=== PATIENT | female | born 2000 | race Two or more races ===

== ENCOUNTER 2024-07-24 17:08 | Emergency (ER) | payer MEDICAID, SELFPAY ==
[2024-07-24 17:23] VITALS: BP 130/89; PULSE 85; RESP 16; TEMP 37.1; O2SAT 99; BMI 34.2
--- NOTE | 2024-07-24 17:56 | PC.CC ---
Pt Shanon Castelan is a 23 yr old female to ED for auditory hallucinations (command type), pt reporting that she has not been sleeping. At this time pt is pending medical clearance. Pt placed on 1798.
--- NOTE | 2024-07-24 18:06 | PC.NURSE ---
PATIENT BROUGHT TO ROOM WITH . PER PATIENT SHE HAS BEEN HEARING VOICES FOR THE PAST 3 DAYS, STATES THEY CONTINUALLY TALK IN HER HEAD AND TELL HER THAT A FAMILY MEMBER IS GOING TO GET HURT. PATIENT STATES THE VOICES ARE TELLING HER TO STOMP ON SON'S HEAD . STATES SHE HAS BEEN UP AT NIGHT HEARING SCREAMING OUTSIDE. STATES SHE HAS NOT BEEN GETTING SLEEP DUE TO ONE YEAR OLD SON UP AT NIGHT CRYING DUE TO TEETHING AND THAT SHE IS NOT ABLE TO REST DUE TO THE VOICES. PATIENT IS CALM AT TIME OF ASSESSMENT AND ANSWERS ALL QUESTIONS APPROPRIATELY. PATIENT STATE THAT SHE IS CURRENTLY HEARING THE VOICES AND THEY DO NOT TURN OFF. PATIENT ABLE TO WALK TO RESTROOM AND PROVIDE URINE. PATIENT IS CALM AND COOPERATIVE AT TIME OF ASSESSMENT. PLAN OF CARE DISCUSSED WITH PATIENT AND . PATIENT IN ROOM WITH SITTER AT BEDSIDE, ALL EQUIPMENT REMOVED FOR SAFETY.
--- NOTE | 2024-07-24 18:08 | PD.EDPSYCH ---
ED Psych RME/HPI General Chief Complaint: Psychiatric Symptoms Stated Complaint: hearing voices, not sleeping, voices threatening Time Seen by Provider: 07/24/24 17:49 Arrival date/time: 07/24/24 17:08 RME / HPI RME / HPI Narrative: DR. JUNG MAIN ED EVALUATION: 23 year old female presents to the Emergency Department with complaints of auditory hallucinations and anxiety. She states she hears voices that threaten her and her family including her son. She mentions that she has not been sleeping and is anxious. She also states there is a tracker in her body. PMH: Hypertension FH: Hypertension, T2DM Surgical Hx: x2 Social Hx: Denies tobacco, alcohol, or drug use. Related Data Home Medications ?Medication ?Instructions ?Recorded ?Confirmed aspirin 81 mg chewable tablet 81 mg PO QDAY 06/27/23 06/27/23 vit no.95-ferrous 1 tab PO QDAY 06/27/23 06/27/23 fumarate 28 mg-folic acid 800 mcg tablet () Allergies Allergy/AdvReac Type Severity Reaction Status Date / Time No Known Allergies Allergy Verified 07/24/24 17:09 Review of Systems Review of Systems Systems Reviewed: All systems reviewed, normal except as documented Narrative Review of Systems: GEN: No fever, no chills, no weight loss EYES: No discharge, no visual changes, no pain HEENT: No ear pain, no congestion, no sore throat PULM: No shortness of breath, no cough, no congestion CV: No chest pain, no dyspnea on exertion, no palpitations GI: No nausea, no vomiting, no diarrhea, no pain, no constipation : No frequency, no urgency and no dysuria MUSC/SKEL: No joint pain, no back pain SKIN: No rash PSYCH: + auditory hallucinations (see HPI), + anxiety. HEME/LYMPH: No easy bleeding or bruising tendencies NEURO: No weakness, no headache Past Medical History Family History FAMILY HISTORY: Positive Family Respiratory Disorders (MOTHER: ASTHMA) and Family Cardiac Disorders (MOTHER, MGA : HTN); Negative Family Psychiatric Problems, Family Gastrointestinal Problems, Family Cancer, Family Surgery or Family Anesthesia Reaction Surgical History SURGICAL: Positive Section (X1) Social History SMOKING STATUS: Never smoker SUBSTANCE USE: does not use ALCOHOL: Never Past Medical History Comments PMH COMMENT: PMH: Hypertension FH: Hypertension, T2DM Surgical Hx: x2 Social Hx: Denies tobacco, alcohol, or drug use. ED Exam Narrative Physical exam: GENERAL APPEARANCE: alert and oriented x 4, well-developed, well-nourished, no acute distress VITALS: All vitals were reviewed and the pulse ox is 99% on room air, which is normal according to my interpretation. HEENT: Normocephalic, atraumatic; pupils equal, round, reactive to light; EOMI; mucous membranes pink, moist; oropharynx clear NECK: Supple LUNGS: CTABL; no wheezes, no rales, no rhonchi HEART: Regular rate, regular rhythm; normal S1, S2; no murmurs ABDOMEN: non distended; normal BS; soft, no tenderness, no guarding, no rebound; no masses, no organomegaly, no hernia BACK: no CVA tenderness EXTREMITIES: atraumatic; no edema NEUROLOGIC: awake; alert and oriented x4; cranial nerves II-XII grossly intact; no focal sensory or motor deficits PSYCHIATRIC: anxious SKIN: warm, dry, normal color; no rashes Course Course Course Narrative: 1800: Patient was signed out to Dr. Harris. Past medical, surgical, social and family history reviewed. Vitals and home medications reviewed. Results and treatment plan discussed. They will assume the care of the patient at this time and will follow the patient, pending psychiatric placement. Quality Measures none Orders Category Date Time Status 1799 Psychiatric Hold NOW Care 07/24/24 18:00 Ordered Alcohol, Urine Stat Lab 07/24/24 17:49 Received CBC Stat Lab 07/24/24 18:10 Received CMP [Comprehensive Metabolic Panel] Stat Lab 07/24/24 18:10 Received Drug Screen,Urine Stat Lab 07/24/24 17:49 Received HCG Qualitative,Urine Stat Lab 07/24/24 17:49 Received Vital Signs Vital signs: Vital Signs Temperature 98.7 F 07/24/24 17:23 Pulse Rate 85 07/24/24 17:23 Respiratory Rate 16 07/24/24 17:23 Blood Pressure 130/89 H 07/24/24 17:23 Pulse Oximetry (%) 99 07/24/24 17:23 Oxygen Delivery Method Room Air 07/24/24 17:23 Psych MDM Narrative MDM Narrative:: INahomy am scribing for and in the presence of Dr. Jung. Patient data External records reviewed:: [facility] previous records (Reviewed last OB / STRUCTURAL BIOLOGIST note by Dr. Arrieta, dated 06/30/23.) Clinical information provided by:: patient Social determinants that could affect healthcare access:: none Patient has the following chronic illnesses:: PMH: Hypertension FH: Hypertension, T2DM Surgical Hx: x2 How is presenting disease/condition affected by chronic disease/condition?: exacerbated by Evaluation data The following diagnostics were reviewed and interpreted by me:: lab results Lab and/or radiology exams considered but not ordered:: none Interpretation Summary: Pending labs. Medications / Prescriptions Medications or Prescriptions considered but not ordered:: none Medication administrations:: see above if any Consultations Consultation(s) initiated? (list below): No Diagnosis Psych Differential Diagnosis: acute psychosis, drug-induced psychotic disorder, acute anxiety and other (schizophrenia/hallucinations) Most likely diagnosis given after review of the tests above:: As noted below. Admission Indicated Admission indicated?: not indicated Admission Request Was there a request for admission?: No Disposition Plan Disposition Plan: other (specify) (Patient signout to the shift superintendent provider. ) Discharge Plan Prescriptions/Referrals Prescriptions/Med Rec: No Action PNV cmb#95-ferrous fumarate-FA [] 28 mg iron- 800 mcg Tablet 1 tab PO QDAY aspirin 81 mg Tablet,Chewable 81 mg PO QDAY Problem List Clinical Impression: Auditory hallucinations, At risk for danger to others Patient/Caregiver Discharge Instructions Print Language: Tamazight
[2024-07-24 18:17] LABS: Basophils # (Auto) 0.1 Thou/mm3 (0.0-0.2); Basophils % (Auto) 1 % (0-2.5); Eosinophils # (Auto) 0.1 Thou/mm3 (0.0-0.5); Eosinophils % (Auto) 1 % (0-10); Hematocrit 40.5 % (36.0-46.0); Hemoglobin 13.8 g/dL (12.0-16.0); Immature Granulocytes % (Auto) 0 % (0-0); Immature Granulocytes Auto 0.02 Thou/mm3 (0.00-0.00); Lymphocytes # (Auto) 1.9 Thou/mm3 (1.0-4.8); Lymphocytes % (Auto) 21 % (10-50); Mean Corpuscular HGB Conc 34.1 g/dl (31.0-37.0); Mean Corpuscular Hemoglobin 29.7 pg (25.0-35.0); Mean Corpuscular Volume 87 fL (80-100); Monocytes # (Auto) 0.6 Thou/mm3 (0.0-0.8); Monocytes % (Auto) 7 % (0-12); Neutrophils # (Auto) 6.6 Thou/mm3 (1.8-7.7); Neutrophils % (Auto) 71 % (37-80); Nucleated Red Blood Cell % 0 /100 WBC (0); Platelet Count 225 Thou/mm3 (140-440); RDW Standard Deviation 40.1 fL (36.4-46.3); Red Blood Count 4.65 Miln/mm3 (4.00-5.20); White Blood Count 9.2 Thou/mm3 (3.6-11.0)
[2024-07-24 18:31] LABS: HCG Qualitative,Urine Negative
--- NOTE | 2024-07-24 18:31 | EDNOTE_ITS ---
Emergency Room Addendum <Nahomy Mariscal - Last Filed: 07/24/24 18:31> Addendum Narrative: 1800: Care assumed from Dr. Jung, the previous shift emergency physician. Past medical, surgical, social and family history reviewed. Vitals and home medications reviewed. I will assume the care of the patient at this time, pending psychiatric placement. The patient was placed in ED observation care at 07/24/2024 at 1800 hours. The patient was placed in ED observation care because of undifferentiated decompensated behavioral health evaluation, no behavioral health bed available. The plan of care will include serial examinations. Please refer to the emergency department record for history and examination.? While in ED observation the patient will have access to water, food, and personal hygiene. If the patient takes home medication(s), they will be contin ued in ED observation. Physical exam by me shows patient under no acute distress at this time. <Rocky Harris MD - Last Filed: 07/25/24 03:56> Addendum Narrative: 1800 (07/24/24): Care assumed from Dr. Jung, see her notes for complete H&P. During my watch, the patient remained stable. At 6 AM on 07/25/2024, the care of the patient was transferred to Dr. JUNG. Rocky Harris MD
[2024-07-24 18:33] LABS: Alcohol, Urine Negative (Negative); Amphetamine/Methamp Scrn,U Negative (Negative); Barbiturate Screen,Urine Negative (Negative); Benzodiazepines Screen,Urine Negative (Negative); Benzoylecgonine Screen, Ur Negative (Negative); Fentanyl Screen,Urine Negative (Negative); Opiate Screen,Urine Negative (Negative); THC Screen,Urine Negative (Negative)
[2024-07-24 18:34] LABS: Alanine Aminotransferase 15 U/L (10-49); Albumin, Serum 4.8 gm/dL (3.5-5.0); Albumin/Globulin Ratio 2.1 (1.2-2.2); Alkaline Phosphatase 77 U/L (46-116); Anion Gap 7 (7-16); Aspartate Amino Transferase 13 U/L (0-34); BUN/Creatinine Ratio 9 Ratio (12-20); Bilirubin,Total 0.4 mg/dL (0.3-1.2); Blood Urea Nitrogen 6 mg/dL (9-23); Calcium 9.4 mg/dL (8.3-10.6); Calcium (Corrected) 9.4 mg/dL (8.5-10.1); Carbon Dioxide 27.6 mMol/L (20.0-31.0); Chloride 105 mMol/L (98-107); Creatinine (Component) 0.7 mg/dL (0.6-1.3); Globulin 2.3 gm/dL (2.3-3.5); Glucose 86 mg/dL (74-106); Osmolality,Calculated 276 (275-295); Potassium 3.4 mMol/L (3.4-5.1); Sodium 140 mMol/L (136-145); Total Protein 7.1 gm/dL (5.7-8.2); eGFR > 60 See Note
[2024-07-24] MEDS: ALPRazoLAM 0.25 MG TABLET 1 MG PO (19:57)
[2024-07-24 20:08] LABS: Acetaminophen < 2.0 mcg/mL (10.0-20.0); Magnesium 2.3 mg/dL (1.6-2.6); Salicylate < 3.0 mg/dL
[2024-07-25 05:30] VITALS: BP 123/83; PULSE 90; RESP 16; TEMP 36.9; O2SAT 97
--- NOTE | 2024-07-25 07:49 | PC.NURSE ---
pt.'s Mother called here Xiomara [phone], pt. states it's ok to give Xiomara information.
[2024-07-25 07:58] VITALS: BP 116/79; PULSE 93; RESP 18; TEMP 36.7; O2SAT 97
--- NOTE | 2024-07-25 07:58 | PC.NURSE ---
Pt. here from home to bed 7, pt. states she is hearing voices say that they are going to hurt her and her family. Pt. denies any suicidal or homicidal ideation. Pt.'s is bedside and appears supportive, pt. states she has a supportive family. Pt. denies any pain, SOB, no s/s of distress.
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
--- NOTE | 2024-07-25 09:32 | PC.CC ---
Patient was accepted to [facility]. ASW to arrange transportation. Patient was provided with accepting information facility. Dr. Jung, supply chain systems manager Lanise, and RAHEEL Montano made aware of discharge plan.
--- NOTE | 2024-07-25 09:55 | PC.CC ---
ED Die Cutter Operator filed SCAR report via fax and telephone call. Call reported to CWS TITUS Hunter.
[2024-07-25 10:51] VITALS: BP 110/62; PULSE 93; RESP 17; TEMP 36.9; O2SAT 96
--- NOTE | 2024-07-25 11:05 | PC.CC ---
Pt and partner asked to speak with ED Skip Miner. Pt reported concerns with being transfer to psych facility. Religion Professor explained 5150 hold and process to Pt and partner and answered any questions and concerns. Pt and partner stated they understood 5150 process and did not have any further questions or concerns.
--- NOTE | 2024-07-27 16:42 | PC.CC ---
[id number]-Call from Yue Cruz with CWS for follow up information on SCARS report completed by ED Aircraft Structural Repair Mechanic Nelly Castillo. Updated that pt was detained on 5150 hold and placed at [facility]. Yue inquired for contact information for pts life partner and FOB. Contact information available provided at this time. ASW will remain available as needed for pt care and staff support.
== END 2024-07-25 11:00 ==
LOC: SERX 18:53
PROVIDERS: Nurse Practitioner Primary Care; Emergency Provider Emergency Medicine
DX: R44.0 Auditory hallucinations (principal); F41.9 Anxiety disorder, unspecified
CPT/HCPCS: 36415; 80053; 80307; 80320; 80329; 81025; 83735; 85025; 90839; 96127; 99285; A9270; G0480

== ENCOUNTER 2025-06-25 13:39 | Outpatient (AMB) | payer MEDICAID, SELFPAY ==
--- NOTE | 2025-06-25 13:53 | OBCLNT_ITS ---
Vital Signs 06/25/25 13:54 Height 1.73 m Height Method Stated Weight 127.97 kg Weight Measurement Method Standing Scale BMI 42.7 BP 127/83 Blood Pressure Source Automatic Cuff Blood Pressure Location Right Upper Arm Position Sitting Respiration 18 Pulse 99 Pulse Source Monitor Temp 97.3 F Temp Source Temporal Artery Scan Pulse Oximetry (%) 98 Oxygen Delivery Method Room Air Allergies/Home Meds Allergies & Medications Allergies No Known Allergies Allergy (Verified 06/25/25 13:58) Medication Reconciliation aspirin 81 mg chewable tablet 81 mg PO QDAY 06/27/23 [History Confirmed 06/25] vit no.95-ferrous fumarate 28 mg-folic acid 800 mcg tablet () 1 tab PO QDAY 06/27/23 [History Confirmed 06/25/25] Intake Visit Data Collection New Patient or Established: Established Patient (seen at [facility] within 3 years) Reason for Visit:: OBI TRANSFER Seen by Clinical Staff ONLY (RN/MA): No Non Garment Sewing Machine Operator Required: No Do You Feel Safe at Home: Yes Authorities Contacted: N/A PCP or OBGYN visit in last 3 months: No Hx Now: Yes Are you currently on any form of Control: No Last menstrual period: 12/15/24 Pain Present Currently: No Pain Scale Used: Jaimes-Walden/Numerical Smoking Status Smoking Status: Never smoker Immunizations Flu Vaccine in the Last 12 Months: No Flu Vaccine Exclusion Criteria: Refused by Patient Questionnaires Covid-19 Vaccine Questionnaire Has patient been vacinated for Covid-19 Have you been vacinated for Covid-19: No PHQ-9 PHQ-2 Over the last 2 weeks, how often have you been bothered by any of the following problems? 1. Little interest or pleasure in doing things: not at all 2. Feeling down, depressed, or hopeless: not at all Total score: 0 PHQ-9 3. Trouble falling or staying asleep, or sleeping too much: Not at all 4. Feeling tired or having little energy: Not at all 5. Poor appetite or overeating: Not at all 6. Feeling bad about yourself - or that you are a failure or have let yourself or your family down: Not at all 7. Trouble concentrating on things, such as reading the newspaper or watching television: Not at all 8. Moving or speaking so slowly that other people could have noticed? - Or the opposite - being so fidgety or restless that you have been moving around a lot more than usual: not at all 9. Thoughts that you would be better off or of hurting yourself in some way: Not at all Total score: 0 If you checked off any problems, how difficult have these problems made it for you to do your work, take care of things at home, or get along with other people?: not difficult at all Source: Developed by Drs. Maximino Sandoval, Fela Licona, Nikko Dodd and colleagues, with an educational lluvia from [employer]. 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 Medical History Past Medical History: No Hx Neurological Disorders, No Hx Cardiac Disorders, No Hx Cancer, No Hx Blood Disorders, No Hx Gastrointestinal Disorders, No Hx Renal Disease, No Hx Diabetes Mellitus Type 1 and No Hx Diabetes Mellitus Type 2 OB Initial Visit OB Flowsheet OB Flowsheet Initial Weight: Not Recorded Date -?-?-?-?-?-?-?-?-?-?-?-?- EGA Weight BP Alb Glu CTX Pres Fundal ht FHR Mov Dilation Station Effacement Hx Notes Visit Note 06/25/25 -?-?-?-?-?-?-?-?-?-?-?-?- 33w 1d 127.97 kg 127/83 absent unknown 34 140 active Menstrual History Menstrual reliability: definite Flow: normal Menstrual regularity: regular Monthly: Yes Age at menarche: 11 On control pills at conception: No OB History : 3 Para: 2 Hx # Pregnancies: 2 # of Living Children: 2 Delivery History 1st : Child's name: CARMEN RUBY date: 03/15/19 sex: female Gestational age at delivery (weeks): 26 Delivery type: weight (lbs): 907.185 g History of depression before or after : Yes 2nd : Child's name: BLANCA RUBY date: 06/27/23 sex: male Gestational age at delivery (weeks): 36 Delivery type: weight (lbs): 4000 g History of depression before or after : No Infection History & Risk Evaluation History of STDs: none Patient or partner has history of Genital Herpes: No Genetic Screening & History Genetic Screening/Teratology Counseling - Includes patient, baby's father, or anyone in either family with: 1. Patient's age 35 years or older as of estimated date of delivery: No 2. Thalassemia (Georgian, Palestinian, Mediterranean, or Background); MCV less than 80: No 3. Neural Tube Defect (Meningomyelocele, Spina Bifida, or Anencephaly): No 4. Congenital Heart Defect: No 5. Down Syndrome: No 6. Sandeep-Sachs (Ashkenazi Pentecostalism, Cajun, Chilean Yemeni): No 7. Pat Disease (Ashkenazi Pentecostalism): No 8. Familial Dysautonomia (Ashkenazi Pentecostalism): No 9. Sickle Cell Disease or Trait (): No 10. Hemophilia or other blood disorders: No 11. Muscular Dystrophy: No 12. Cystic Fibrosis: No 13. Muriel's Chorea: No 14. Mental Retardation/Autism: No 15. Other inherited genetic or chromosomal disorder: No 16. Maternal Metabolic Disorder (EG,TYPE 1 Diabetes, PKU): No 17. Patient or baby's father had a child with defects not listed above: No 18. Recurrent loss or a stillbirth: No 19. Medications (including supplements, vitamins, herbs or otc drugs)/illicit/recreational drugs/alcohol since last menstrual period: No 20. Any other: No Infection History 1. Live with someone with TB or exposed to TB: No Other (see comments) Source: [employer] Review of Systems Review of Systems Systems Reviewed: All systems reviewed, normal except as documented Exam Narrative Physical exam: Alert and oriented x 3 no shortness of breath Pain no chest pain no palpitations Chest no extra effort noted CVS regular rate and rhythm No CVAT Abdomen nontender, normal bowel sounds No guarding no rigidity No hernias Office Procedures OBC Clinic LOC & Office Proc's Nursing/Assessment Patient Status: Established Patient OB Clinic Nursing Assessment: Medication Reconciliation, Update PMH in EMR and Vital Signs OB Clinic Coordination of Care: Complex Care and Chronic Disease 1-5, Education Complex Pt/Fam, Consent,records obtained, informed consent, Lab and Imaging orders and Results/Orders obtained Special Needs: Heart tones Established Patient Charge Established Patient Point Assignment: 130 Established Patient Point Charge: EP Level 4 (120-155) Assessment & Plan Diagnosis / Problem List (1) Previous delivery affecting : Status: Acute Plan: Schedule repeat LTCS between 07/30/2025 and 08/05/2025 as per [facility] / deliver between 38 to 39 weks / dating by 2 US at 13 and 19 weeks (2) Essential hypertension affecting : Status: Acute Qualifiers: Trimester: unspecified trimester Qualified Code(s): O10.919 - Unspecified pre-existing hypertension complicating , unspecified trimester Plan: home monitoring BP and to call if BP > 140/90 or more (3) : Status: Acute Qualifiers: Weeks of gestation: 33 weeks Qualified Code(s): Z3A.33 - 33 weeks gestation of Assessment and Plan: follow up 2 weeks / scheduled for repeat LTCS on 07/30/2025 at at 12.30 pm (4) : Status: Acute Qualifiers: Weeks of gestation: 33 weeks Qualified Code(s): Z3A.33 - 33 weeks gestation of Plan / Previous c section x 2 / Transfer from [facility] / h/o essential HTN / obesity / MM recommend s delivery between 38 to 39 weeks / doing home monitoring for BP and is on no medications / NST recommended from 34 weeks / GTT 1 hour is 117/ B positive / Rest labs all normal including NIPT / declines Tubal Ligation / Explained risks of Placental spectrum disorders with increasing number of c sections / follow up in 2 weeks / refer for NST Biweekly / GBS next visit/ address vaccines next visit Flu and Tdap Additional Plan Follow Up: 2 Weeks
[2025-06-25 13:54] VITALS: BP 127/83; PULSE 99; RESP 18; TEMP 36.3; O2SAT 98; BMI 42.7
== END 2025-06-25 14:41 | disposition home or self-care (01) ==
LOC: HODSOBC 13:39
PROVIDERS: PCP Family Medicine; Referring Provider Family Medicine; Supervising Provider Obstetrics & Gynecology; Visit Provider Obstetrics & Gynecology
DX: O09.293 Supervision of pregnancy with other poor reproductive or obstetric history, third trimester (principal); O34.211 Maternal care for low transverse scar from previous cesarean delivery; O09.893 Supervision of other high risk pregnancies, third trimester; O10.913 Unspecified pre-existing hypertension complicating pregnancy, third trimester; O99.213 Obesity complicating pregnancy, third trimester; Z3A.33 33 weeks gestation of pregnancy
CPT/HCPCS: 99214; G0463

== ENCOUNTER 2025-07-10 11:28 | Outpatient (AMB) | payer MEDICAID, SELFPAY ==
--- NOTE | 2025-07-10 11:40 | AMB.OBPNC ---
Vital Signs 07/10/25 11:46 Height 1.73 m Height Method Stated Weight 131.145 kg Weight Measurement Method Standing Scale BMI 43.8 BP 134/83 H Blood Pressure Source Automatic Cuff Blood Pressure Location Left Upper Arm Position Sitting Respiration 18 Pulse 122 H Pulse Source Monitor Temp 98.2 F Temp Source Oral Pulse Oximetry (%) 98 Oxygen Delivery Method Room Air Allergies/Home Meds Allergies & Medications Allergies No Known Allergies Allergy (Verified 07/10/25 11:41) Medication Reconciliation aspirin 81 mg chewable tablet 81 mg PO QDAY 06/27/23 [History Confirmed 07/10/25] vit no.95-ferrous fumarate 28 mg-folic acid 800 mcg tablet () 1 tab PO QDAY 06/27/23 [History Confirmed 07/10/25] clotrimazole 1 % vaginal cream (Gyne-Lotrimin 7) 1 appful vaginal QHS #45 grams 07/10/25 [Rx] Immunizations Immunizations Flu Vaccine in the Last 12 Months: No Flu Vaccine Exclusion Criteria: No Exclusion Criteria Care OB Visit Log OB Flowsheet Initial Weight: Not Recorded Date <del>?</del> EGA Weight BP Alb Glu CTX Pres Fundal ht FHR Mov Dilation Station Effacement Hx Notes Visit Note 06/25/25 <del>?</del> 33w 1d 127.97 kg 127/83 absent unknown 34 140 active 07/10/25 <del>?</del> 35w 2d 131.145 kg 134/83 absent cephalic 36 142 active GBS today and requests vaginal medication for yeast BORA Calculator Estimated Delivery Date Method Current WG Current Estimate 08/12/25 Ultrasound #1 36w 2d Other Estimates 08/09/25 Ultrasound #2 36w 5d Notes Visit Date: 07/10/25 Last Updated by: Yulissa Loyola MD / Previous c section x 2 / Transfer from [facility] / h/o essential HTN / obesity / MM recommend s delivery between 38 to 39 weeks / doing home monitoring for BP and is on no medications /patient is 35.2 weeks / MFM recommends delivery between 37 to 39 weeks / scheduled for repeat LTCS on Jul 30 / patient is going for biweekly NST and does home BP monitoring and is normal below 130/85 at home declines flu vaccine and also declines tubal sterilization Visit Date: 06/25/25 Last Updated by: Yulissa Loyola MD / Previous c section x 2 / Transfer from [facility] / h/o essential HTN / obesity / MM recommend s delivery between 38 to 39 weeks / doing home monitoring for BP and is on no medications / NST recommended from 34 weeks / GTT 1 hour is 117/ B positive / Rest labs all normal including NIPT / declines Tubal Ligation / Explained risks of Placental spectrum disorders with increasing number of c sections / follow up in 2 weeks / refer for NST Biweekly / GBS next visit/ address vaccines next visit Flu and Tdap Office Procedures OBC Clinic LOC & Office Proc's Nursing/Assessment Patient Status: Established Patient OB Clinic Nursing Assessment: Medication Reconciliation, Update PMH in EMR and Vital Signs OB Clinic Coordination of Care: Consent,records obtained, informed consent, Education Simp Pt/Fam, Results/Orders obtained and Staff clarify orders Special Needs: Heart tones Miscellaneous Interventions: Pelvic Comp w/OB cult Established Patient Charge Established Patient Point Assignment: 110 Established Patient Point Charge: EP Level 3 (80-115) Assessment & Plan Diagnosis / Problem List (1) Previous delivery affecting : Status: Acute (2) : Status: Acute Qualifiers: Weeks of gestation: 33 weeks Qualified Code(s): Z3A.33 - 33 weeks gestation of (3) Obesity affecting , antepartum: Status: Acute Qualifiers: Obesity type affecting : unspecified obesity Qualified Code(s): O99.210 - Obesity complicating , unspecified trimester Additional Assessment / Previous c section x 2 / Transfer from [facility] / h/o essential HTN / obesity / MM recommend s delivery between 38 to 39 weeks / doing home monitoring for BP and is on no medications /patient is 35.2 weeks / MFM recommends delivery between 37 to 39 weeks / scheduled for repeat LTCS on Jul 30 / patient is going for biweekly NST and does home BP monitoring and is normal below 130/85 at home declines flu vaccine and also declines tubal sterilization Additional Plan follow up on nST and repeat LTCS on 07/30/2025
[2025-07-10 11:46] VITALS: BP 134/83; PULSE 122; RESP 18; TEMP 36.8; O2SAT 98; BMI 43.8
== END 2025-07-10 12:01 | disposition home or self-care (01) ==
LOC: HODSOBC 11:28
PROVIDERS: Supervising Provider Obstetrics & Gynecology; Visit Provider Obstetrics & Gynecology
DX: O09.293 Supervision of pregnancy with other poor reproductive or obstetric history, third trimester (principal); O34.211 Maternal care for low transverse scar from previous cesarean delivery; O09.893 Supervision of other high risk pregnancies, third trimester; O99.213 Obesity complicating pregnancy, third trimester; O10.013 Pre-existing essential hypertension complicating pregnancy, third trimester; Z3A.35 35 weeks gestation of pregnancy; Z36.85 Encounter for antenatal screening for Streptococcus B; Z28.21 Immunization not carried out because of patient refusal
CPT/HCPCS: 99213; G0463

== ENCOUNTER 2025-07-29 14:15 | Outpatient (RCR) | payer MEDICAID, SELFPAY ==
--- NOTE | 2025-07-11 14:00 | XR_ITS ---
Examination: Biophysical profile, ultrasound Date and time of exam: July 11, 2025, 1416 hours INDICATIONS: Diagnosis gestational hypertension Technique: Multiple transabdominal sonographic images of the pelvis abdomen obtained. Attention is directed to the breathing movement, gross body movement, amniotic fluid volume and tone. Findings: Amniotic fluid index 10.8 cm Total biophysical profile is 8 of 8. breathing movement is 2. Gross body movement is 2. tone is 2. Qualitative amniotic fluid volume is 2 Impression: Biophysical profile is 8 of 8.
[2025-07-11 15:00] VITALS: BP 131/91; PULSE 100; RESP 16; TEMP 36.7
[2025-07-15 15:09] VITALS: BP 136/72; PULSE 99; RESP 16; TEMP 36.7
--- NOTE | 2025-07-18 14:21 | XR_ITS ---
Examination: Biophysical profile, ultrasound Date and time of exam: July 18, 2025, 1433 hours INDICATIONS: Diagnosis gestational hypertension Technique: Multiple transabdominal sonographic images of the pelvis abdomen obtained. Attention is directed to the breathing movement, gross body movement, amniotic fluid volume and tone. Findings: Amniotic fluid index 10.2 cm Total biophysical profile is 8 of 8. breathing movement is 2. Gross body movement is 2. tone is 2. Qualitative amniotic fluid volume is 2 Impression: Biophysical profile is 8 of 8.
[2025-07-18 16:08] VITALS: BP 139/75; PULSE 95; RESP 16; TEMP 36.7
--- NOTE | 2025-07-22 15:04 | XR_ITS ---
Examination: Biophysical profile, ultrasound Date and time of exam: July 22, 2025, 1553 hours INDICATIONS: Diagnosis gestational hypertension Technique: Multiple transabdominal sonographic images of the pelvis abdomen obtained. Attention is directed to the breathing movement, gross body movement, amniotic fluid volume and tone. Findings: Amniotic fluid index 11.1 cm Total biophysical profile is 8 of 8. breathing movement is 2. Gross body movement is 2. tone is 2. Qualitative amniotic fluid volume is 2 Impression: Biophysical profile is 8 of 8.
[2025-07-22 16:08] VITALS: BP 132/82; PULSE 97; RESP 17
--- NOTE | 2025-07-29 14:24 | XR_ITS ---
Examination: Biophysical profile, ultrasound Date and time of exam: July 29, 2025, 1434 hours INDICATIONS: Diagnosis -induced hypertension Technique: Multiple transabdominal sonographic images of the pelvis abdomen obtained. Attention is directed to the breathing movement, gross body movement, amniotic fluid volume and tone. Findings: Amniotic fluid index 8.3 cm Total biophysical profile is 8 of 8. breathing movement is 2. Gross body movement is 2. tone is 2. Qualitative amniotic fluid volume is 2 Impression: Biophysical profile is 8 of 8.
[2025-07-29 14:55] VITALS: BP 145/85; PULSE 116; RESP 16; TEMP 36.7
== END 2025-07-29 23:59 | disposition home or self-care (01) ==
LOC: S4S1 14:15
PROVIDERS: Referring Provider Obstetrics & Gynecology; Visit Provider Obstetrics & Gynecology
DX: O10.913 Unspecified pre-existing hypertension complicating pregnancy, third trimester (principal); O34.219 Maternal care for unspecified type scar from previous cesarean delivery; Z3A.38 38 weeks gestation of pregnancy
CPT/HCPCS: 59025; 76819

== ENCOUNTER 2025-07-29 17:04 | Inpatient (IN) | payer MEDICAID, SELFPAY ==
[2025-07-29] VITALS (41 sets, daily range): BP systolic 133–166; BP diastolic 80–101; PULSE 84–106; RESP 12–20; TEMP 36.5–36.9; O2SAT 97–100; BMI 47.4
[2025-07-29] MEDS: RINGERS LACTATED 1000 ML 1,000 ML 125 ML IV ×2 (17:34→18:42)
[2025-07-29 17:52] LABS: Basophils # (Auto) 0.0 Thou/mm3 (0.0-0.2); Basophils % (Auto) 0 % (0-2.5); Eosinophils # (Auto) 0.1 Thou/mm3 (0.0-0.5); Eosinophils % (Auto) 1 % (0-10); Hematocrit 40.1 % (36.0-46.0); Hemoglobin 13.8 g/dL (12.0-16.0); Immature Granulocytes Auto 0.04 Thou/mm3 (0.00-0.00); Lymphocytes # (Auto) 2.3 Thou/mm3 (1.0-4.8); Lymphocytes % (Auto) 23 % (10-50); Mean Corpuscular HGB Conc 34.4 g/dl (31.0-37.0); Mean Corpuscular Hemoglobin 29.5 pg (25.0-35.0); Mean Corpuscular Volume 86 fL (80-100); Monocytes # (Auto) 0.6 Thou/mm3 (0.0-0.8); Monocytes % (Auto) 6 % (0-12); Neutrophils # (Auto) 7.0 Thou/mm3 (1.8-7.7); Neutrophils % (Auto) 70 % (37-80); Nucleated Red Blood Cell # 0.00 Thou/mm3 (0.00-0.00); Nucleated Red Blood Cell % 0 /100 WBC (0); Platelet Count 238 Thou/mm3 (140-440); RDW Standard Deviation 41.1 fL (36.4-46.3); Red Blood Count 4.68 Miln/mm3 (4.00-5.20); White Blood Count 10.1 Thou/mm3 (3.6-11.0)
[2025-07-29 18:12] LABS: Alanine Aminotransferase 9 U/L (10-49); Albumin, Serum 3.9 gm/dL (3.5-5.0); Albumin/Globulin Ratio 1.3 (1.2-2.2); Alkaline Phosphatase 111 U/L (46-116); Anion Gap 12 (7-16); Aspartate Amino Transferase 15 U/L (0-34); BUN/Creatinine Ratio 12 Ratio (12-20); Bilirubin,Total 0.3 mg/dL (0.3-1.2); Blood Urea Nitrogen 7 mg/dL (9-23); Calcium 9.3 mg/dL (8.3-10.6); Calcium (Corrected) 9.4 mg/dL (8.5-10.1); Carbon Dioxide 21.1 mMol/L (20.0-31.0); Chloride 106 mMol/L (98-107); Creatinine (Component) 0.6 mg/dL (0.6-1.3); Estimated Creatinine Clearance 199.5 mL/min (>60); Globulin 2.9 gm/dL (2.3-3.5); Glucose 78 mg/dL (74-106); Osmolality,Calculated 274 (275-295); Potassium 3.7 mMol/L (3.4-5.1); Sodium 139 mMol/L (136-145); Total Protein 6.8 gm/dL (5.7-8.2); eGFR > 60 See Note
--- NOTE | 2025-07-29 18:39 | PD.LDHP ---
Documentation for date of: 07/29/25 OB Labor/Induct. HPI History of Present Illness Chief complaint: NST for hx PIH/ CS x 2, Obesity follow-up, elevated blood pressures : 3 Term pregnancies: 0 pregnancies: 2 Living children: 2 History of Abortions: Spontaneous and Elective: 0 History of sections: Yes (2022, 2018) History of : No Date of last menstrual period: 12/15/24 BORA: 08/12/25 Gestational Age (weeks): 38 Gestational Age (days): 0 Gestational age based on last menstrual period: 32 History of present illness: The patient is a 24-year-old -2-0-2 history of a 28-week for severe preeclampsia and placental abruption at 28 weeks in 2018, followed by another at 36 weeks for -induced hypertension in 2022. Patient's current BMI is 47. She has been followed closely for history of PIH. Today she had a nonstress test that had periods of a category 2 with slow recovery. She had a BPP that was 8 out of 8 and normal ABBEY. She was monitored for a couple of hours and actually began cedric about every 8 minutes. Since she was scheduled for a section the next day, she was kept for a repeat low-transverse section at 38-0/7 weeks. Of note due to her past medical history and prior history of x 2 with maternal morbid obesity, the maternal- medicine specialist recommended section between 38 and 39 weeks. All PIH were labs were normal on presentation. Her blood pressures were in the 140s to 150s over 90s today. History of Present Dating criteria: LMP confirmed by 1st trimester US Adequate Care: Yes Ultrasounds: normal mid trimester US Obstetrical complications: other (History of severe PAH) Medical complications: other (Maternal BMI of 47) Labs Maternal Blood Type: B Pos (Patient) Labs: Positive: Rubella Titre, Negative: RPR, Hepatitis B, HIV, Chlamydia and Gonorrhea and Unknown: Herpes Type 2, Group Beta Strep and Covid-19 Past Medical History Surgical History SURGICAL: Positive Section (2022, 2018) Past Medical History Comments PMH COMMENT: Positive for obesity with a BMI of 47 ,positive for x 2, positive for a history of severe preeclampsia x 2 Meds Home Medications and Allergies Home Medications ?Medication ?Instructions ?Recorded ?Confirmed ?Type aspirin 81 mg chewable tablet 81 mg PO QDAY 06/27/23 07/29/25 History vit no.95-ferrous 1 tab PO QDAY 06/27/23 07/29/25 History fumarate 28 mg-folic acid 800 mcg tablet () Allergies Allergy/AdvReac Type Severity Reaction Status Date / Time No Known Allergies Allergy Verified 07/29/25 17:30 OB Exam Physical Exam Vital signs: Pulse BP Pulse Ox 88 138/94 H 99 07/29/25 18:28 07/29/25 18:28 07/29/25 18:33 Constitutional Constitutional: no acute distress Routine Respiratory Exam Respiratory: Present CTA bilaterally Routine Cardiovascular Exam Cardiovascular: Present RRR Routine Abdominal Exam Abdominal: Present soft Comments: Prior Pfannenstiel scar x 2 Detailed Labor and Delivery Exam Membranes: intact monitor accelerations: 15x15 monitor decelerations: None long-term variability: Average (6-10) Contraction frequency (min): Every 8 minutes Tachysystole: No Contraction intensity: Moderate OB Results Labs 07/29/25 17:20 07/29/25 17:20 Labs: Short CBC 07/29/25 Range/Units 17:20 WBC 10.1 (3.6-11.0) Thou/mm3 Hgb 13.8 (12.0-16.0) g/dL Hct 40.1 (36.0-46.0) % Plt Count 238 (140-440) Thou/mm3 BMP 07/29/25 17:20 Sodium 139 Potassium 3.7 Chloride 106 Carbon Dioxide 21.1 BUN 7 L Creatinine 0.6 Glucose 78 Calcium 9.3 Liver Function 07/29/25 Range/Units 17:20 Total Bilirubin 0.3 (0.3-1.2) mg/dL AST 15 (0-34) U/L ALT 9 L (10-49) U/L Alkaline Phosphatase 111 (46-116) U/L Albumin 3.9 (3.5-5.0) gm/dL OB Assessment & Plan Assessment and Plan (1) Previous section complicating , antepartum condition or complication: Status: Acute Assessment and plan: Previous x 2 (2) Morbid obesity with BMI of 45.0-49.9, adult: Status: Acute Assessment and plan: Lovenox postop (3) -induced hypertension in third trimester: Status: Acute Assessment and plan: For repeat section at 38 weeks Additional Plan Additional Plan Comment: Consented for repeat low-transverse section
[2025-07-29] MEDS: METOCLOPRAMIDE INJ 5 MG/ML VIAL 2 ML 10 MG IVP (19:17)
[2025-07-29] MEDS: FAMOTIDINE INJ 10 MG/ML VIAL 2 ML 20 MG IV (19:18)
[2025-07-29] MEDS: ceFAZolin/D5W 2 GM IV 2 GM/100 ML BAG IV (19:19)
[2025-07-29 19:22] LABS: Syphilis Nonreactive (Nonreactive)
--- NOTE | 2025-07-29 20:34 | ESOP_ITS ---
Operative Note - PRENATAL NURSE Procedure Date of procedure: 07/29/25 Procedure Performed: Repeat low-transverse section Indication: The patient is a 24-year-old -2-0-2 past obstetrical history significant for in 2018 at 28 weeks for severe preeclampsia followed by repeat C- section in 2022 again for severe preeclampsia at 36 weeks. Patient been followed closely at the clinic and came in today for nonstress test. Blood pre ssures were borderline in the 140s to 150s over 80s however the baby would occasionally have a category 2 tracing. She also began cedric approximately every 8 minutes. As the patient's blood pressures were mildly elevated at 38 weeks with the plan to perform a tomorrow on 07/30/2025, the patient was consented for repeat low transverse section. Pre-Op diagnosis: 1. IUP at 38 weeks 2. Previous x 2 3. Previous history of severe preeclampsia 4. Elevated blood pressures 5. Maternal BMI of 47 Post-Op diagnosis: Same Anesthesia type: Spinal Procedure description: After obtaining informed consent, the patient was brought back to the operating room and spinal anesthesia administered. She was then prepped and draped in the dorsal supine position with a leftward tilt in a normal sterile fashion. A Pineda catheter was inserted into the patient's bladder. The patient was given 2 g of Ancef by anesthesia. A Pfannenstiel skin incision was made with a scalpel and the prior scar was removed. The incision was carried down to the underlying fascia. The fascia was incised in the midline the fascial incision extended laterally using Grajeda scissors. The superior aspect of the fascia was grasped with Bernadette clamps and the underlying rectus muscles dissected off using blunt and sharp dissection. This was repeated in the inferior aspect of the incision. The rectus muscles were in the midline, the peritoneum was picked up and entered sharply with Metzenbaums. This was extended superiorly and inferiorly with good visualization of the bladder. The bladder blade was inser roderick and the uterus was incised in a low transverse fashion above the bladder reflection using a scalpel. The uterine incision was extended laterally using blunt dissection with surgeon's fingers. The bag taylor was ruptured and copious clear fluid noted. The bladder blade was removed and the infant was delivered atraumatically. As the baby was vigorous at , delayed cord clamping was performed for approximately 45 seconds. The cord was then clamped and cut and the was handed off to the waiting pediatric staff. Cord blood was collected. Cord gases were saved. The placenta was then manually removed, and the uterus exteriorized and cleared of all clots and debris. The uterine incision was repaired with 0 Monocryl in a running locked fashion. Excellent hemostasis was noted. The uterus was returned to the patient's abdominal cavity and copious irrigation carried out with warm normal saline. The uterine incision was reexamined several times and noted to be hemostatic. After ensuring the rectus muscles were hemostatic, these were reapproximated in the midline using a running suture of 0 Monocryl. The fascia was closed with 0 Vicryl in a running fashion. The subcutaneous tissues were irrigated and found to be hemostatic . These were closed using 2 layers of 2-0 plain. The skin was closed with a subcuticular suture of 4-0 Monocryl. The patient tolerated the p rocedure well, sponge, lap, needle, and instrument counts were correct x 2. The patient went to the recovery area awake and in stable condition. Of note the baby was doing well with mom and dad in recovery. Fluids: crystalloid Fluid amount (mL): 3,000 Urine output (mL): 100 Specimen: none Implants: None Estimated blood loss (ml): 400 Findings: Liveborn female in the OA presentation with no nuchal cord and no meconium. Apgars were 9 and 9. Weight was 7 pounds 2 ounces. Placenta was complete ,spontaneous , and grossly normal. Tubes,uterus ovaries were grossly normal. She had very little scar tissue present in her abdomen. She did have a thin lower uterine segment with no window. Complications: none Surgical staff Operation Date: 07/29/25 19:45 <No data on this case meets the specified criteria> Madyson Beltrán CRNA Diagnosis Discharge Diagnosis (1) Morbid obesity with BMI of 45.0-49.9, adult: Status: Acute Problem details: Lovenox postop (2) -induced hypertension in third trimester: Status: Acute Problem details: Labetalol push as needed (3) Previous section complicating , antepartum condition or complication: Status: Acute Problem details: Repeat #3 performed Problem List Completed Was Problem List Reviewed/Reconciled?: Yes
--- NOTE | 2025-07-29 20:55 | OBDSUM_ITS ---
Data (Conte) Data Hx Section: Yes (2018) Maternal Blood Type: B Pos Rubella Titre: Positive RPR: Non-reactive Labs: Negative: RPR, Hepatitis B, HIV, Chlamydia, Gonorrhea and Group Beta Strep : 3 Term: 0 : 2 Livin Abortions: Spontaneous & Theraputic: 0 Delivery Data (Conte) Labor Data Induction/Augmentation Agent: None ROM date: 07/29/25 ROM time: 19:58 Amniotic membrane rupture type: Artificial Amniotic fluid description: Clear Delivery Data EDC: 07/12/25 EDC calculated by:: LMP/early US confirmation Date of arrival to unit: 07/29/25 [place] delivery date: 07/29/25 delivery time: 19:59 Gestational age (weeks): 38 Gestational age (days): 0 Placenta delivery date: 07/29/25 Placenta delivery time: 20:01 Delivered by: Olga Eduardo ([facility]) Delivery nurse: Kelsey Bar RN [place] nurse: Miri Castelan RN Financial Cost Analyst at delivery: No Support person(s) at delivery: FATHER OF BABY Other staff at delivery: Manas DAVENPORT Delivery Method Delivery method: Low Transverse Presentation: Vertex position: OA Anesthesia Type Anesthesia Type: Spinal Anesthesia type: Spinal Delivery Room Medications Delivery room medications: Pitocin 20 u IV Placenta Placenta delivery description: Manual Removal Cord blood sent to lab: Yes cord blood collection: Cord Blood Type Episiotomy Episiotomy description: None EBL Estimated blood loss (ml): 400 Umbilical Cord cord description: 3 Vessels Additional Procedures See op report for further details Complications Complications: none Data (Conte) Data order: 1 [place]'s gender: Female Identification band number: [id number] weight (gms): 3240 g Weight (pounds): 7 lbs and 2.3 ozs length: 52.71 cm 1 minute: 9 5 minutes: 9
[2025-07-29 21:20] LABS: Collection Type, Urine Clean Catch
[2025-07-29 21:26] LABS: Bacteria,Urine Rare; Bilirubin,Urine Negative (Negative); Blood,Urine Negative (Negative); Clarity,Urine Clear (Clear/Hazy); Color,Urine Lt-Yellow (Lt Yel-Yel); Glucose, Urine Negative (Negative); Ketones,Urine Negative (Negative); Leukocyte Esterase,Urine Positive (Negative); Nitrite,Urine Negative (Negative); PH,Urine 6.0 (5.0-7.0); Protein,Urine Negative (Neg - Trace); RBC,Urine 2 /hpf (0-3); Specific Gravity,Urine 1.009 (1.001-1.035); Squamous Epithelial Cell,Urine 3 /hpf (0-5); Urobilinogen,Urine Negative mg/dL (0.0-1.0); WBC,Urine 1 /hpf (0-5)
[2025-07-29 21:32] LABS: Creatinine,Random Urine 45 mg/dL (30-125); Protein Total, Random Urine 7 mg/dL (1-14)
[2025-07-30] VITALS (7 sets, daily range): BP systolic 121–132; BP diastolic 71–87; PULSE 87–99; RESP 16–18; TEMP 36.7–36.9; O2SAT 97–99
[2025-07-30] MEDS: KETOROLAC INJ 30 MG/ML VIAL IVP ×2 (00:47→08:15)
[2025-07-30] MEDS: OXYTOCIN in NS 20 units 20 UNIT/1,000 ML BAG 125 UNIT IV (05:02)
[2025-07-30 06:16] LABS: Basophils # (Auto) 0.1 Thou/mm3 (0.0-0.2); Basophils % (Auto) 1 % (0-2.5); Eosinophils # (Auto) 0.1 Thou/mm3 (0.0-0.5); Eosinophils % (Auto) 1 % (0-10); Hematocrit 34.8 % (36.0-46.0); Hemoglobin 12.2 g/dL (12.0-16.0); Immature Granulocytes Auto 0.04 Thou/mm3 (0.00-0.00); Lymphocytes # (Auto) 2.8 Thou/mm3 (1.0-4.8); Lymphocytes % (Auto) 23 % (10-50); Mean Corpuscular HGB Conc 35.1 g/dl (31.0-37.0); Mean Corpuscular Hemoglobin 30.3 pg (25.0-35.0); Mean Corpuscular Volume 86 fL (80-100); Monocytes # (Auto) 0.7 Thou/mm3 (0.0-0.8); Monocytes % (Auto) 5 % (0-12); Neutrophils # (Auto) 8.6 Thou/mm3 (1.8-7.7); Neutrophils % (Auto) 71 % (37-80); Nucleated Red Blood Cell # 0.00 Thou/mm3 (0.00-0.00); Nucleated Red Blood Cell % 0 /100 WBC (0); Platelet Count 167 Thou/mm3 (140-440); RDW Standard Deviation 41.0 fL (36.4-46.3); Red Blood Count 4.03 Miln/mm3 (4.00-5.20); White Blood Count 12.3 Thou/mm3 (3.6-11.0)
[2025-07-30 06:37] LABS: Alanine Aminotransferase 8 U/L (10-49); Albumin, Serum 3.1 gm/dL (3.5-5.0); Albumin/Globulin Ratio 1.3 (1.2-2.2); Alkaline Phosphatase 83 U/L (46-116); Anion Gap 10 (7-16); Aspartate Amino Transferase 17 U/L (0-34); BUN/Creatinine Ratio 14 Ratio (12-20); Bilirubin,Total 0.4 mg/dL (0.3-1.2); Blood Urea Nitrogen 7 mg/dL (9-23); Calcium 8.3 mg/dL (8.3-10.6); Calcium (Corrected) 9.0 mg/dL (8.5-10.1); Carbon Dioxide 22.4 mMol/L (20.0-31.0); Chloride 105 mMol/L (98-107); Creatinine (Component) 0.5 mg/dL (0.6-1.3); Estimated Creatinine Clearance 239.4 mL/min (>60); Globulin 2.3 gm/dL (2.3-3.5); Glucose 69 mg/dL (74-106); Osmolality,Calculated 269 (275-295); Potassium 3.9 mMol/L (3.4-5.1); Sodium 137 mMol/L (136-145); Total Protein 5.4 gm/dL (5.7-8.2); eGFR > 60 See Note
[2025-07-30] MEDS: LABETALOL 100 MG TABLET 200 MG PO ×2 (08:14→21:58)
[2025-07-30] MEDS: ENOXAPARIN SOD INJ 40 MG/0.4 ML SYRINGE SC (08:14)
[2025-07-30] MEDS: DOCUSATE SOD 100 MG CAPSULE PO (08:14)
[2025-07-30] MEDS: PRENATAL VITAMIN/FE FUM/FA TABLET 1 TAB PO (08:15)
--- NOTE | 2025-07-30 08:31 | PD.LDPPPRG ---
Subjective Subjective Interval history: Delivery type: for preeclampsia on labetalol 200 twice daily Patient doing well this morning. No acute complaints. Ambulating, tolerating p.o., and voiding without difficulty. HTN/Pre-E screen negative: No CP, SOB, CAMPBELL, visual changes, RUQ pain. : Yes Lochia: diminishing Bowel: Flatus + / BM + UOP: Voiding Exam Vital Signs Temp Pulse Resp BP Pulse Ox O2 Del Method 98.3 F 90 18 122/85 H 97 Room Air 07/30/25 04:00 07/30/25 08:14 07/30/25 04:00 07/30/25 08:14 07/30/25 04:00 07/30/25 04:00 Constitutional Constitutional: no acute distress Routine HEENT Exam Head: Present normocephalic and atraumatic Eye: Present EOMI and PERRL ENT: Present mucous membranes moist Routine Neck Exam Neck: Present supple and trachea midline Routine Respiratory Exam Respiratory: Present chest non-tender, lungs clear, normal breath sounds and no resp distress Routine Cardiovascular Exam Cardiovascular: Present RRR Routine Abdominal Exam Abdominal: Present soft and normoactive bowel sounds Routine Extremities Exam Extremities: Present full ROM Routine Skin Exam Skin: Present intact, dry and warm Routine Neurological Exam Neurological: Present alert, oriented X3 and CN II-XII intact Routine Psychiatric Exam Psychiatric: Present normal affect and normal thought process Objective Labs 07/30/25 05:44 07/30/25 05:44 Labs: Laboratory Results - last 24 hr 07/29/25 07/29/25 07/30/25 17:20 19:00 05:44 WBC 10.1 12.3 H RBC 4.68 4.03 Hgb 13.8 12.2 Hct 40.1 34.8 L MCV 86 86 MCH 29.5 30.3 MCHC 34.4 35.1 RDW Std Deviation 41.1 41.0 Plt Count 238 167 D Neut % (Auto) 70 71 Lymph % (Auto) 23 23 [place] % (Auto) 6 5 Eos % (Auto) 1 1 Baso % (Auto) 0 1 Neut # (Auto) 7.0 8.6 H Lymph # (Auto) 2.3 2.8 [place] # (Auto) 0.6 0.7 Eos # (Auto) 0.1 0.1 Baso # (Auto) 0.0 0.1 Immature Gran # (Auto) 0.04 H 0.04 H Absolute Nucleated RBC 0.00 0.00 Immature Gran % 0 0 Nucleated RBC % 0 0 Sodium 139 137 Potassium 3.7 3.9 Chloride 106 105 Carbon Dioxide 21.1 22.4 Anion Gap 12 10 BUN 7 L 7 L Creatinine 0.6 0.5 L Estim Creat Clear Calc 199.5 239.4 eGFR > 60 > 60 BUN/Creatinine Ratio 12 14 Glucose 78 69 L Calculated Osmolality 274 L 269 L Calcium 9.3 8.3 Corrected Calcium 9.4 9.0 Total Bilirubin 0.3 0.4 AST 15 17 ALT 9 L 8 L Alkaline Phosphatase 111 83 D Total Protein 6.8 5.4 L Albumin 3.9 3.1 L D Globulin 2.9 2.3 Albumin/Globulin Ratio 1.3 1.3 Ur Collection Type Clean Catch Urine Color Lt-Yellow Urine Clarity Clear Urine pH 6.0 Ur Specific Armbrust 1.009 Urine Protein Negative Urine Glucose (UA) Negative Urine Ketones Negative Urine Blood Negative Urine Nitrite Negative Urine Bilirubin Negative Urine Urobilinogen (Auto) Negative Ur Leukocyte Esterase Positive Urine RBC 2 Urine WBC 1 Ur Squamous Epith Cells 3 Urine Bacteria Rare Ur Random Creatinine 45 U Random Total Protein 7 Syphilis Serology Nonreactive Blood Type B Positive Antibody Screen NEGATIVE Crossmatch See Detail Blood Bank Wristband ID Yes Assessment & Plan Problem List (1) Morbid obesity with BMI of 45.0-49.9, adult: Status: Acute (2) -induced hypertension in third trimester: Status: Acute (3) Previous section complicating , antepartum condition or complication: Status: Acute Assessment and plan: 1. Continue routine /post-op care 2. Labs reviewed, cbc appropriate 3. Remove dressing/Pineda 4. Encourage to ambulate, shower 5. Encourage PO intake, breast feeding Time Spent With Patient Time: Total time spent is greater than 50% in coordination of care (as documented) at patient's floor/unit and/or counseling patient:
[2025-07-31] MEDS: HYDROcodone/APAP 5/325 TABLET 1 TAB PO (02:39)
[2025-07-31 03:39] VITALS: BP 103/71; PULSE 90; RESP 18; TEMP 36.9; O2SAT 96
--- NOTE | 2025-07-31 04:49 | PC.NURSE ---
Pt provided and educated/demonstrated how to use the breast pump. All questions answered.
[2025-07-31 08:00] VITALS: BP 123/82; PULSE 86; RESP 18; TEMP 36.8; O2SAT 96
[2025-07-31 08:54] VITALS: BP 123/82; PULSE 86
[2025-07-31] MEDS: LABETALOL 100 MG TABLET 200 MG PO (08:54)
[2025-07-31] MEDS: DOCUSATE SOD 100 MG CAPSULE PO (08:55)
[2025-07-31] MEDS: PRENATAL VITAMIN/FE FUM/FA TABLET 1 TAB PO (08:55)
[2025-07-31] MEDS: ENOXAPARIN SOD INJ 40 MG/0.4 ML SYRINGE SC (08:55)
--- NOTE | 2025-07-31 09:27 | PC.CC ---
Patient is a 24 year-old, female, presents to the hospital to deliver her baby girl. PANEL SAW OPERATOR received a referral for concerns of history of psychosis. PANEL SAW OPERATOR Angela made [id number] contact to complete an assessment due to history of psychosis. PANEL SAW OPERATOR introduced herself, role in the agency, reason for visit, and discussed limits of confidentiality. Patient appeared alert and oriented to self, time, place, and situation. Patient made good eye contact. Patient was cooperative. Patient?s behavior appeared ordinary. No signs of delusions or hallucinations. Patient confirmed information on demographics and reports to living at home with her 2 other children ages 6, 2, and her life partner/FOB Jorge Smith . 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 Patient denied current mental health and SI/HI/VH/AH. PANEL SAW OPERATOR provided psychoeducation regarding baby blues and Post- Depression, as well as counseling groups at [facility]. SW provided community resources: Warm Line and Crisis Line. Patient denied history with CWS and denied history of domestic violence. Patient reports she has all the supplies she needs for her new-born and is receiving WIC. Patient reports her support system includes her significant other and her family. PANEL SAW OPERATOR provided update to bedside RAHEEL Adkins.
--- NOTE | 2025-07-31 10:13 | PD.LDDS ---
DS: Providers Provider Date of admission: 07/29/25 19:52 Primary care physician: Physician No Primary/Family Admitting Provider: Olga [facility] ([facility]) Attending Provider on Admission: Yulissa Loyola MD Attending Provider on DC: Tiffany Boogie MD Discharging Provider: Tiffany Boogie MD DS: Diagnosis Discharge Diagnosis (1) delivery delivered: Status: Acute (2) -induced hypertension in third trimester: Status: Acute (3) Morbid obesity with BMI of 45.0-49.9, adult: Status: Acute (4) Previous section complicating , antepartum condition or complication: Status: Acute Problem List Completed Was Problem List Reviewed/Reconciled?: Yes Summary/Hosp Course Brief History: The patient is a 24-year-old -2-0-2 history of a 28-week for severe preeclampsia and placental abruption at 28 weeks in 2018, followed by another at 36 weeks for -induced hypertension in 2022. Patient's current BMI is 47. She has been followed closely for history of PIH. Today she had a nonstress test that had periods of a category 2 with slow recovery. She had a BPP that was 8 out of 8 and normal ABBEY. She was monitored for a couple of hours and actually began cedric about every 8 minutes. Since she was scheduled for a section the next day, she was kept for a repeat low-transverse section at 38-0/7 weeks. Of note due to her past medical history and prior history of x 2 with maternal morbid obesity, the maternal- medicine specialist recommended section between 38 and 39 weeks. All PIH were labs were normal on presentation. Her blood pressures were in the 140s to 150s over 90s today. -- Shanon is now POD 2 s/p uncomplicated section and doing well. She has had an uncomplicated post-operative course, meeting all milestones and feels ready for discharge home. She is ambulating without lightheadedness, tolerating regular diet no n/v, spontaneously voiding without issue. She has no chest pain or shortness of breath. No fevers or chills. Pain well controlled. Vitals normal, benign exam. Hemodynamically stable with no evidence of infection. Post-op Hgb 12.2 from 13.8. No CAMPBELL, vision changes or RUQ pain- no evidence of pre-eclampsia. She has been taking labetalol 200mg PO BID with good bp control and will continue . Peripartum Data Delivery Method: Low Transverse Episiotomy Description: None Procedures: Procedures Operation Date: 07/29/25 19:45 Actual Procedure Side Surgeon p in OB Not Applicable Olga Eduardo ([facility]), Status at Discharge Functional status at discharge: independent ambulation Overall status at discharge: patient is back to baseline Time Spent with Patient Time attestation: Total time spent providing and/or coordinating discharge services: Exam Vital Signs Temp Pulse Resp BP Pulse Ox O2 Del Method 98.2 F 86 18 123/82 96 Room Air 07/31/25 08:00 07/31/25 08:54 07/31/25 08:00 07/31/25 08:54 07/31/25 08:00 07/31/25 08:00 Narrative Exam General: well developed, well nourished, no acute distress, conversant Cardiac: normal heart rate Lungs: breathing without distress Abdomen: soft, post-gravid, obese, non-tender, no rebound or guarding, pfannenstiel incision covered by dry/clean/intact prineo bandage. Incision well reapproximated. No erythema, drainage or induration. Fundus firm at u-2cm. Extremities: no pain with palpation of calves, trace edema of BLE Discharge Plan Plan Patient Disposition: HOME (Self Care) Patient condition on transfer: Stable Prescriptions/Referrals Prescriptions/Med Rec: New hydrocodone-acetaminophen 5-325 mg Tablet 1 tab PO Q6H MDD 4 tablets PRN (Reason: Patient rated pain 7 to 8) 7 Days Qty: 12 0RF docusate sodium 100 mg Capsule 100 mg PO BID 10 Days Qty: 20 0RF labetalol 200 mg tablet 200 mg PO BID 30 Days Qty: 60 0RF Continued PNV no.95-ferrous fumarate-FA [] 28 mg iron- 800 mcg Tablet 1 tab PO QDAY Discontinued clotrimazole [Gyne-Lotrimin 7] 1 % cream 1 appful vaginal QHS Qty: 45 0RF aspirin 81 mg Tablet,Chewable 81 mg PO QDAY Referrals: No Primary/Family,Physician [Primary Care Provider] Patient/Caregiver Discharge Instructions Discharge Activity: activity as tolerated Other Discharge Activity Instructions:: vaginal rest and no heavy lifting more than 10 pounds for 6 weeks[address] while taking narcotic. keep incision clean and dry, do not submerge. Other Discharge Diet Instructions: regular Education Materials: C Section Dc Print Language: Upper Sorbian Activity Restrictions/Additional Instructions: follow up with Dr. Loyola in 1 to 2 weeks for incision check, call clinic to schedule appointment Stand Alone Forms: Laura Award Info., Patient Portal Info Letter Discharge Order Discharge Orders: Discharge (Routine); Ordered 07/31/25 Ordered By: Tiffany Boogie Planned Discharge Date 07/31/25
== END 2025-07-31 10:55 | disposition home or self-care (01) | DRG 540 ==
LOC: S4SX 17:48 → S4NX 19:51
PROVIDERS: Admitting Provider Obstetrics & Gynecology; Visit Provider Obstetrics & Gynecology
PROC: (CPT 59514; principal; 2025-07-29 19:30)
DX: O34.211 Maternal care for low transverse scar from previous cesarean delivery (principal); O13.4 Gestational [pregnancy-induced] hypertension without significant proteinuria, complicating childbirth; E66.01 Morbid (severe) obesity due to excess calories; O99.214 Obesity complicating childbirth; Z37.0 Single live birth; Z3A.38 38 weeks gestation of pregnancy
CPT/HCPCS: 36415; 80053; 81001; 82570; 84156; 85025; 86780; 86850; 86900; 86901; 86923; 94762; A4217; A4314; A4649; J0689; J1650; J1885; J2274; J2371; J2590; J2765; J3010; J3490; J7120; A9270; J2270